=== PATIENT | male | born 1995 | race Caucasian/White ===

== ENCOUNTER 2023-03-24 10:50 | Emergency (ER) | payer OTHER, SELFPAY ==
[2023-03-24] VITALS (12 sets, daily range): BP systolic 133–161; BP diastolic 66–108; PULSE 59–81; RESP 13–25; TEMP 36.7–37.2; O2SAT 94–100; BMI 25.2
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
[2023-03-24] MEDS: MORPHINE 4 MG/ML INJ IV (11:21)
--- NOTE | 2023-04-26 11:42 | PC.NURSE ---
Pt called requesting work note until 05/08. Called back as unable to take the call when he initially called. Left pt messaged stating that we were unable to give work note for from 03/24 to 05/08 and he would have to call pcp or L&I provider. Encouraged to call back if he had any questions.
--- NOTE | 2023-04-26 12:30 | PC.NURSE ---
Pt presents requesting work note from ED visit to 04/02 where he was seen by provider and told that he could not work. Needs note for 03/24 to 04/02. Discussed w/ Dr. Acosta who ok'd work note. Printed and given to patient.
== END 2023-03-24 12:48 | disposition home or self-care (01) ==
PROVIDERS: Emergency Provider Emergency Medicine; Family Provider Pediatrics; PCP Pediatrics
DX: S90.32XA Contusion of left foot, initial encounter (principal); R07.89 Other chest pain; M54.2 Cervicalgia; V89.2XXA Person injured in unspecified motor-vehicle accident, traffic, initial encounter
CPT/HCPCS: 71045; 72170; 73630; 96374; 99284; J2270